=== PATIENT | male | born 1975 | race Caucasian/White ===

== ENCOUNTER 2022-01-26 09:30 | Outpatient (CLI) | payer OTHER ==
[~2022-01-26] VITALS: Ht 175.3 cm; Wt 70.8 kg
== END 2022-01-26 23:59 | disposition home or self-care (01) ==
LOC: MLB 09:30 → EDSTATUS 01-28 15:50
PROVIDERS: ATTEND Internal Medicine Gastroenterology
DX: Z01.812 Encounter for preprocedural laboratory examination (principal); Z20.822 Contact with and (suspected) exposure to COVID-19